=== PATIENT | female | born 1995 | race Native Hawaiian/Other Pacific Islander ===

== ENCOUNTER 2020-10-12 08:28 | Emergency (ER) | payer OTHER ==
[~2020-10-12] VITALS: Ht 149.9 cm; Wt 90.7 kg
[2020-10-12 09:27] LABS: POTASSIUM 3.3 mmol/L (3.6-5.2)
[2020-10-12 09:31] LABS: PLATELET COUNT 327 K/uL (152-353)
[2020-10-12 10:15] VITALS: BP 151/87; TEMP 98
== END 2020-10-12 10:15 | disposition home or self-care (01) ==
LOC: ED 08:28
PROVIDERS: Family Medicine
DX: O20.0 Threatened abortion (principal); Z3A.01 Less than 8 weeks gestation of pregnancy
CPT/HCPCS: 80053; 81000; 81025; 84702; 85027; 99284

== ENCOUNTER 2020-11-22 23:24 | Emergency (ER) | payer OTHER ==
[2020-12-04 10:49] LABS: PLATELET COUNT 273 K/uL (152-353)
== END 2020-11-23 01:29 | disposition left against medical advice (07) ==
LOC: ED 23:24
PROVIDERS: Family Medicine
DX: R51.9 Headache, unspecified (principal); Z53.21 Procedure and treatment not carried out due to patient leaving prior to being seen by health care provider
CPT/HCPCS: 80053; 81000; 85027; 99283